=== PATIENT | female | born 2000 | race Caucasian/White ===

== ENCOUNTER 2023-01-18 18:03 | Day surgery (SDC) | payer BC, SELFPAY ==
--- NOTE | ~2023-01-18 | XR_ITS ---
EXAMINATION: XR chest 2V Exam Date/Time: 01/18/2023 20:05 CDT HISTORY: chest discomfort, food bolus Comparison: 06/09/2011. RESULT: Lines, tubes, and devices: None. Lungs and pleura: Clear. Cardiomediastinal silhouette: Stable. Other: No acute osseous or upper abdominal finding. IMPRESSION: No acute cardiopulmonary process. Reviewed, dictated and finalized at location K.
[2023-01-18 18:11] VITALS: BP 142/89; PULSE 81; RESP 18; TEMP 36.3; O2SAT 100
[2023-01-18] MEDS: ONDANSETRON INJ 4 MG/2 ML VIAL IV PUSH (19:56)
[2023-01-18] MEDS: SODIUM CHLORIDE 0.9% IV 2,000 ML 999 ML IV CONT (19:57)
[2023-01-18 20:00] LABS: Basophils Absolute Auto 0.1 K/mm3 (0.0-0.1); Basophils Percent Auto 0.4 % (0.2-1.2); Eosinophils Absolute Auto 0.2 K/mm3 (0-0.3); Eosinophils Percent Auto 1.3 % (0-4.4); Hematocrit 42.8 % (37.0-47.0); Immature Granulocyte Absolute 0.03 K/mm3 (0.00-0.031); Immature Granulocyte Percent A 0.2 % (0-0.5); Lymphocytes Absolute Auto 2.58 K/mm3 (0.9-3.2); Lymphocytes Percent Auto 21.2 % (18.3-44.2); Mean Corpuscular HGB Conc 30.4 g/dl (32-36); Mean Corpuscular Hemoglobin 24.3 pg (26-34); Mean Corpuscular Volume 80.1 fl (80-100); Mean Platelet Volume 10.5 fl (7.4-10.4); Neutrophils Absolute Auto 8.4 K/mm3 (1.3-6.7); Neutrophils Percent Auto 68.9 % (45.5-73.1); Platelet Count Result 329 k/mm3 (150-375); Red Blood Count 5.34 M/mm3 (4.2-5.4); Red Cell Distribution Width 16.4 % (11.5-14.5); White Blood Count 12.2 K/mm3 (4.5-10.0)
[2023-01-18 20:04] LABS: Glucose Point of Care 84 mg/dl (65-105)
--- NOTE | 2023-01-18 20:04 | ED.NAVMDI ---
HPI - Nausea/Vomiting/Diarrhea General Chief complaint: Nausea/Vomiting/Diarrhea Stated complaint: vomiting Time Seen by Provider: 01/18/23 19:41 Source: patient Mode of arrival: ambulatory Limitations: no limitations History of Present Illness HPI Narrative: Patient is a 22-year-old female presenting to the emergency department for evaluation of difficulty swallowing. Patient reports history of weekly difficulty swallowing for several years. Patient reports that she will choke on food especially meat products sometimes twice weekly, and if she is able to vomit, patient is able to clear the food bolus herself. Patient has never seen a integrated circuit fabricator. She states that around noon today she was eating chicken at lunch when she felt it become lodged in her esophagus. She states she has been trying to clear the obstructive sensation since this afternoon. Patient has tried vomiting at home without success. She has been unable to tolerate her secretions, continues to spit up her saliva. She reports some mild generalized chest discomfort, denies palpitations, jaw pain, neck pain. No lightheadedness or dizziness, no syncope. Patient states she has tried drinking carbonated beverages, raising her arms above her head and relaxing to try to resolve the sensation. Related Data Allergies Allergy/AdvReac Type Severity Reaction Status Date / Time No Known Allergies Allergy Verified 01/18/23 20:26 Review of Systems Review of Systems: CONSTITUTIONAL: Denies fever CARDIOVASCULAR: Denies chest pain RESPIRATORY: Denies cough or dyspnea. GASTROINTESTINAL: Denies abdominal pain, reports vomiting SKIN: Denies rash MUSCULOSKELETAL: Denies back pain NEUROLOGIC: Denies headache PMFSH Past Medical History Medical History (Updated 01/18/23 @ 20:51 by Opal Sanchez MD) Dysphagia Surgical History Surgical History (Updated 01/18/23 @ 20:09 by Opal Sanchez MD) No pertinent past surgical history Social History Social History (Updated 01/18/23 @ 20:10 by Opal Sanchez MD) Smoking status: Never smoker Substance use: never Gender identity (if verbalized by the patient): Female Exam Narrative: GENERAL: Awake, alert, conversant, appears uncomfortable HEAD: Normocephalic, atraumatic. EYES: PERRLA and EOMI. ENT: Nares clear, no rhinorrhea or epistaxis. Mucous membranes moist. NECK: Supple. CHEST: No respiratory distress, breathing even and non labored HEART: Regular rate, sinus rhythm ABDOMEN:Non distended, non tender EXTREMITIES: Normal range of motion. No edema. SKIN: Warm, dry, no rash. NEURO:No focal deficits. Alert and oriented x3 Course Vital Signs Vital signs: Vital Signs Temperature 36.3 C L 01/18/23 18:11 Pulse Rate 81 01/18/23 18:11 Respiratory Rate 18 01/18/23 18:11 Blood Pressure 142/89 H 01/18/23 18:11 Pulse Oximetry 100 01/18/23 18:11 Oxygen Delivery Room Air 01/18/23 18:11 Temperature 36.3 C L 01/18/23 18:11 Pulse Rate 81 01/18/23 18:11 Respiratory Rate 18 01/18/23 18:11 Blood Pressure 142/89 H 01/18/23 18:11 Pulse Oximetry 100 01/18/23 18:11 Oxygen Delivery Room Air 01/18/23 18:11 MDM - Nausea/Vomiting/Diarrhea MDM Narrative Medical decision making narrative: Medical decision making narrative: -Presentation: Pt presenting for evaluation of nausea, vomiting; unable to tolerate any oral intake. Pt with history of chronic dysphagia, has had no work up for this. Pt unable to tolerate secretions at this point. -DDX includes but is not limited to: Food impaction, Food bolus, esophageal stricture, esophagitis -Co-morbidities complicating care: None -Social determinants of health: None -External Chart Review: External EMR record reviewed, I personally reviewed the patient's chart and recent notes -Hx from independent Sources: None -Discussion of Management/Consultants:Discussed with Dr. Lozada, plan for endoscopy tonight -Indepen
[2023-01-18 20:08] LABS: Appearance Urine Turbid (Clear); Bacteria Urine 4+ /hpf; Bilirubin Urine Negative (Negative); Blood Urine Negative (Negative); Color Urine Dark Yellow (Yellow); Glucose Urine UA Negative (Negative); Ketones Urine Trace mg/dL (Negative); Leukocyte Esterase Ur 3+ LEU/UL (Negative); Nitrate Urine Negative (Negative); Protein Urine 1+ mg/dL (Negative); RBC Urine 0-2 /hpf (0-2); Specific Grav Ur 1.029 (1.001-1.035); Squamous Epithelial Cell Urine Moderate /hpf (Few); WBC Urine >100 /hpf
--- NOTE | 2023-01-18 20:10 | ECG_ITS ---
Measurements Intervals [place] Rate: 77 P: 62 GA: 157 QRS: 60 QRSD: 95 T: 24 QT: 397 QTc: 451 Interpretive Statements SINUS RHYTHM NO PREVIOUS ECG AVAILABLE FOR COMPARISON Electronically Signed On 01-19-2023 14:12:51 CDT by Brandin Early M.D.
[2023-01-18 20:11] LABS: Alanine Aminotransferase 14 U/L (6-35); Albumin Level 4.3 g/dL (3.5-5.1); Alkaline Phosphatase 116 U/L (38-126); Anion Gap 9 mmol/L (8-16); Aspartate Amino Transferase 20 U/L (14-36); Bilirubin,Total 0.4 mg/dL (0.2-1.3); Blood Urea Nitrogen 12 mg/dL (7-17); Calcium 9.1 mg/dL (8.4-10.2); Carbon Dioxide 24 mmol/L (22-30); Chloride 107 mmol/L (98-107); Estimated CRCL calculation 141 ml/min; Estimated Glomerular Filt Rate > 60; Glucose 79 mg/dL (65-110); Lipase 66 U/L (23-300); Potassium 4.2 mmol/L (3.4-5.0); Sodium 140 mmol/L (137-145)
[2023-01-18 20:16] LABS: Add Urine Microscopic? YES
--- NOTE | 2023-01-18 21:08 | WPDANESEPPF ---
Anes - Initial Pre Proc Eval Procedure: Operation Date: 01/18/23 21:30 Proposed Procedures p Esophagogastroduodenoscopy(Not Applicable) - Nikunj Lozada MD Date/Time: 01/18/23 21:08 Surgeon: Nikunj Lozada MD Pre Op Diagnosis: vomiting Patient Data Age: 22 Gender: F Height: 1.65 m Weight: 90.2 kg Last Vital Signs Temp 36.3 C L 01/18/23 18:11 Pulse 81 01/18/23 18:11 Resp 18 01/18/23 18:11 BP 142/89 H 01/18/23 18:11 Pulse Ox 100 01/18/23 18:11 O2 Del Method Room Air 01/18/23 18:11 Allergies Allergy/AdvReac Type Severity Reaction Status Date / Time No Known Allergies Allergy Verified 01/18/23 20:26 Laboratory Tests 01/18/23 01/18/23 01/18/23 19:51 19:55 20:00 WBC 12.2 H K/mm3 (4.5-10.0) RBC 5.34 M/mm3 (4.2-5.4) Hgb 13.0 g/dL (12.0-15.0) Hct 42.8 % (37.0-47.0) MCV 80.1 fl (80-100) MCH 24.3 L pg (26-34) MCHC 30.4 L g/dl (32-36) RDW 16.4 H % (11.5-14.5) Plt Count 329 k/mm3 (150-375) MPV 10.5 H fl (7.4-10.4) Immature Gran % (Auto) 0.2 % (0-0.5) Neut % (Auto) 68.9 % (45.5-73.1) Lymph % (Auto) 21.2 % (18.3-44.2) [place] % (Auto) 8.0 % (2.6-8.5) Eos % (Auto) 1.3 % (0-4.4) Baso % (Auto) 0.4 % (0.2-1.2) Lymph # (Auto) 2.58 K/mm3 (0.9-3.2) [place] # (Auto) 1.0 H K/mm3 (0.1-0.6) Eos # (Auto) 0.2 K/mm3 (0-0.3) Baso # (Auto) 0.1 K/mm3 (0.0-0.1) Abs Immat Gran (auto) 0.03 K/mm3 (0.00-0.031) Absolute Neuts (auto) 8.4 H K/mm3 (1.3-6.7) Absolute Nucleated RBC 0.0 K/mm3 (0.0-0.012) Nucleated RBC % 0.0 % (0.0-0.2) Sodium 140 mmol/L (137-145) Potassium 4.2 mmol/L (3.4-5.0) Chloride 107 mmol/L (98-107) Carbon Dioxide 24 mmol/L (22-30) Anion Gap 9 mmol/L (8-16) BUN 12 mg/dL (7-17) Creatinine 0.60 L mg/dL (0.7-1.0) Estim Creat Clear Calc 141 ml/min Estimated GFR > 60 (59 - ) Glucose 79 mg/dL (65-110) POC Capillary Glucose 84 mg/dl (65-105) Calcium 9.1 mg/dL (8.4-10.2) Total Bilirubin 0.4 mg/dL (0.2-1.3) AST 20 U/L (14-36) ALT 14 U/L (6-35) Alkaline Phosphatase 116 U/L (38-126) Total Protein 9.0 H g/dL (6.3-8.2) Albumin 4.3 g/dL (3.5-5.1) Lipase 66 U/L (23-300) Urine Color Dark yellow (Yellow) Urine Appearance Turbid H (Clear) Urine pH 6.0 (5.0-9.0) Ur Specific Beauty 1.029 (1.001-1.035) Urine Protein 1+ H mg/dL (Negative) Urine Glucose (UA) Negative mg/dL (Negative) Urine Ketones Trace H mg/dL (Negative) Ur Blood (Man) Negative (Negative) Urine Nitrate Negative (Negative) Urine Bilirubin Negative (Negative) Urine Urobilinogen 1.0 mg/dL (<2.0) Leukocyte Esterase Rfl 3+ H TELMA/UL (Negative) Urine RBC 0-2 /hpf (0-2) Urine WBC >100 H /hpf Ur Squamous Epith Cells Moderate /hpf (Few) Urine Bacteria 4+ H /hpf Urine Casts 3-5 Patient hx anesthesia problems: none Family hx anesthesia problems: none Results Review: All pre-operative results and documents have been reviewed as part of the pre-operative evaluation. [facility] Past Medical History Medical History (Updated 01/18/23 @ 21:08 by Wilian Adair MD) Asthma Dysphagia Esophageal obstruction due to food impaction Surgical History Surgical History (Updated 01/18/23 @ 20:09 by Opal Sanchez MD) No pertinent past surgical history Social History Social History (Updated 01/18/23 @ 20:10 by Opal Sanchez MD) Smoking status:
[2023-01-18 21:35] VITALS: BP 113/65; PULSE 78; TEMP 36.9; O2SAT 100
--- NOTE | 2023-01-18 21:40 | P.HP_ITS ---
History of Present Illness History of Present Illness Consent: Risks, benefits, and alternatives have been discussed and questions answered. Patient agrees to proceed with procedure. Chief complaint: vomiting Narrative: Leigh Pelaez is a 22 year old female Who presents emergency room with inability to swallow. She has a sensation of a foreign body And in fact she was unable to swallow even saliva. she states that she has had several episodes for the past few years of difficulty swallowing even going back to her childhood. this has been happening more recently, usually with meat that will hang up for while before it passes. She has never had to have endoscopic treatment as never seen product designer for this. She does get heartburn but is not on medication for that. Review of Systems Review of Systems: All systems reviewed & are unremarkable except as noted in HPI and below PMFSH Past Medical History Medical History Asthma Dysphagia Esophageal obstruction due to food impaction Surgical History Surgical History No pertinent past surgical history Social History Social History Smoking status: Never smoker Substance use: never Gender identity (if verbalized by the patient): Female Meds Home Medications and Allergies Allergies Allergy/AdvReac Type Severity Reaction Status Date / Time No Known Allergies Allergy Verified 01/18/23 20:26 Vital Signs Vital Signs - 24 hr 01/18/23 18:11 Temperature 36.3 C L Pulse Rate 81 Respiratory Rate 18 Blood Pressure 142/89 H Pulse Oximetry 100 Oxygen Delivery Room Air Exam Const: General: alert Orientation/consciousness: patient oriented x3 Resp: Auscultation: clear to auscultation bilaterally Cardio: Rhythm: regular rhythm GI: GI Palp: Yes Soft to palpation and No Tenderness to palpation present (GI) Neuro: General: patient oriented x3 Assessment and Plan Assessment and plan (1) Esophageal obstruction due to food impaction: Code(s): K22.2 - Esophageal obstruction; T18.128A - Food in esophagus causing other injury, initial encounter Status: Acute Assessment and Plan: EGD with possible biopsy or dilatation or cautery, and Removal of foreign body
[2023-01-18] MEDS: LACTATED RINGERS 1,000 ML 150 ML IV CONT (21:41)
[2023-01-18 21:58] VITALS: BP 190/100; PULSE 77; RESP 19; O2SAT 100
[2023-01-18 22:08] VITALS: BP 100/60; PULSE 66; RESP 19; O2SAT 100
[2023-01-18 22:18] VITALS: BP 102/62; PULSE 66; RESP 19; O2SAT 100
== END 2023-01-18 22:25 | disposition home or self-care (01) ==
LOC: ANHED 20:04 → ANHENDO 20:37
PROVIDERS: Emergency Provider Emergency Medicine; Visit Provider Internal Medicine Gastroenterology
PROC: 0DJ08ZZ Inspection of Upper Intestinal Tract, Via Natural or Artificial Opening Endoscopic (ICD-10-PCS; CPT 43235; principal; 2023-01-18 21:30)
DX: T18.128A Food in esophagus causing other injury, initial encounter (principal); K22.2 Esophageal obstruction; K20.0 Eosinophilic esophagitis; E66.9 Obesity, unspecified; Z68.33 Body mass index [BMI] 33.0-33.9, adult
CPT/HCPCS: 43239; 36415; 71046; 80053; 81001; 81025; 82948; 83690; 85025; 87086; 87088; 88305; 93005; 96374; 99285; J2405; J2704; J7030; J7120